=== PATIENT | female | born 1940 | race Caucasian/White ===

== ENCOUNTER 2018-04-29 10:16 | Inpatient (IN) | payer MEDICARE ==
[2018-04-29] MEDS ORDERED: MORPHINE SULFATE 2 MG/ML SYRINGE IVP STA (10:48)
[2018-04-29] MEDS ORDERED: ONDANSETRON 4 MG/2 ML VIAL IVP STA (10:48)
[2018-04-29] MEDS ORDERED: SODIUM CHLORIDE 0.9% 500 ML 500 ML IV STA (10:48)
--- NOTE | 2018-04-29 10:54 | ED ---
Abdominal Pain HPI - General Chief Complaint: Abdominal Pain Stated Complaint: Abd Pain Time Seen by Provider: 04/29/18 10:35 Source: patient, RN notes reviewed Mode of arrival: ambulatory Limitations: no limitations - History of Present Illness Initial Comments: 78-year-old female presents emergency Department chief complaint of lower abdominal pain. Patient states initially started on Monday and has worsened. Patient states that she was seen at formerly [facility] and was told that she most likely has diverticulitis and was started antibiotics. She states the pain has persisted and worsened. Patient states that she is also had diarrhea and not felt well. She has no dysuria no hematuria denies any known fever, chest pain, shortness breath, vomiting. Patient states that she has had a colonoscopy past in which she was told she had diverticulosis. Patient's had a prior cholecystectomy and appendectomy. Patient states that makes the pain feel better is worse than mild laying flat or walking. She states it does radiate across her lower abdomen. - Related Data Allergies Allergy/AdvReac Type Severity Reaction Status Date / Time hydromorphone [From Dilaudid] Allergy Hallucinati Verified 04/29/18 10:31 ons Review of Systems ROS Statement: Those systems with pertinent positive or pertinent negative responses have been documented in the HPI. ROS Other: All systems not noted in ROS Statement are negative. Past Medical History Past Medical History: Hyperlipidemia, Hypertension, Osteoarthritis (OA) History of Any Multi-Drug Resistant Organisms: None Reported Past Surgical History: Appendectomy, Cholecystectomy, Hysterectomy Additional Past Surgical History / Comment(s): Uterine suspension, D&C, knee surgery, heel spur removal Past Psychological History: No Psychological Hx Reported Smoking Status: Never smoker Past Alcohol Use History: None Reported Past Drug Use History: None Reported General Exam Limitations: no limitations General appearance: alert, in no apparent distress Head exam: Present: atraumatic, normocephalic, normal inspection Neck exam: Present: normal inspection, full ROM. Absent: tenderness, meningismus, lymphadenopathy Respiratory exam: Present: normal lung sounds bilaterally. Absent: respiratory distress, wheezes, rales, rhonchi, stridor Cardiovascular Exam: Present: regular rate, normal rhythm, normal heart sounds. Absent: systolic murmur, diastolic murmur, rubs, gallop, clicks GI/Abdominal exam: Present: soft, tenderness (Moderate left lower quadrant tenderness with mild right lower), normal bowel sounds. Absent: distended, guarding, rebound, rigid Back exam: Absent: CVA tenderness (R), CVA tenderness (L) Skin exam: Present: warm, dry, intact, normal color. Absent: rash Course Vital Signs 04/29/18 04/29/18 04/29/18 10:24 11:30 12:00 Temperature 97.7 F Pulse Rate 90 75 68 Respiratory 18 18 17 Rate Blood Pressure 144/66 134/70 128/71 O2 Sat by Pulse 97 96 95 Oximetry 04/29/18 12:30 Temperature Pulse Rate 69 Respiratory 18 Rate Blood Pressure 128/73 O2 Sat by Pulse 96 Oximetry Medical Decision Making - Lab Data Result diagrams: 04/29/18 11:25 04/29/18 11:25 Lab Results 04/29/18 04/29/18 04/29/18 Range/Units 11:25 11:25 11:25 WBC 8.7 (3.8-10.6) k/uL RBC 4.85 (3.80-5.40) m/uL Hgb 15.1 (11.4-16.0) gm/dL Hct 47.8 H (34.0-46.0) % MCV 98.6 (80.0-100.0) fL MCH 31.1 (25.0-35.0) pg MCHC 31.5 (31.0-37.0) g/dL RDW 12.4 (11.5-15.5) % Plt Count 214 (150-450) k/uL Neutrophils % 71 % Lymphocytes % 16 % Monocytes % 9 % Eosinophils % 2 % Basophils % 0 % Neutrophils # 6.2 (1.3-7.7) k/uL Lymphocytes # 1.4 (1.0-4.8) k/uL Monocytes # 0.8 (0-1.0) k/uL Eosinophils # 0.2 (0-0.7) k/uL Basophils # 0.0 (0-0.2) k/uL PT (9.0-12.0) sec INR (<1.2) APTT (22.0-30.0) sec Sodium 139 (137-145) mmol/L Potassium 5.1 (3.5-5.1) mmol/L Chloride 110 H (98-107) mmol/L Carbon Dioxide 20 L (22-30) mmol/L Anion Gap 9 mmol/L BUN 10 (7-17) mg/dL Creatinine 0.67 (0.52-1.04) mg/dL Est GFR (CKD-EPI)AfAm >90 (>60 ml/min/1.73 sqM) Est GFR (CKD-EPI)NonAf 84 (>60 ml/min/1.73 sqM) Glucose 96 (74-99) mg/dL Plasma Lactic Acid Oliver 1.4 (0.7-2.0) mmol/L Calcium 8.9 (8.4-10.2) mg/dL Total Bilirubin 1.0 (0.2-1.3) mg/dL AST 53 H (14-36) U/L ALT 27 (9-52) U/L Alkaline Phosphatase 64 (38-126) U/L Total Protein 6.9 (6.3-8.2) g/dL Albumin 3.7 (3.5-5.0) g/dL Amylase 46 (30-110) U/L Lipase 61 (23-300) U/L Urine Color Urine Appearance (Clear) Urine pH (5.0-8.0) Ur Specific [place] (1.001-1.035) Urine Protein (Negative) Urine Glucose (UA) (Negative) Urine Ketones (Negative) Urine Blood (Negative) Urine Nitrite (Negative) Urine Bilirubin (Negative) Urine Urobilinogen (<2.0) mg/dL Ur Leukocyte Esterase (Negative) 04/29/18 04/29/18 Range/Units 11:25 11:25 WBC (3.8-10.6) k/uL RBC (3.80-5.40) m/uL Hgb (11.4-16.0) gm/dL Hct (34.0-46.0) % MCV (80.0-100.0) fL MCH (25.0-35.0) pg MCHC (31.0-37.0) g/dL RDW (11.5-15.5) % Plt Count (150-450) k/uL Neutrophils % % Lymphocytes % % Monocytes % % Eosinophils % % Basophils % % Neutrophils # (1.3-7.7) k/uL Lymphocytes # (1.0-4.8) k/uL Monocytes # (0-1.0) k/uL Eosinophils # (0-0.7) k/uL Basophils # (0-0.2) k/uL PT 10.3 (9.0-12.0) sec INR 1.1 (<1.2) APTT 19.5 L (22.0-30.0) sec Sodium (137-145) mmol/L Potassium (3.5-5.1) mmol/L Chloride (98-107) mmol/L Carbon Dioxide (22-30) mmol/L Anion Gap mmol/L BUN (7-17) mg/dL Creatinine (0.52-1.04) mg/dL Est GFR (CKD-EPI)AfAm (>60 ml/min/1.73 sqM) Est GFR (CKD-EPI)NonAf (>60 ml/min/1.73 sqM) Glucose (74-99) mg/dL Plasma Lactic Acid Oliver (0.7-2.0) mmol/L Calcium (8.4-10.2) mg/dL Total Bilirubin (0.2-1.3) mg/dL AST (14-36) U/L ALT (9-52) U/L Alkaline Phosphatase (38-126) U/L Total Protein (6.3-8.2) g/dL Albumin (3.5-5.0) g/dL Amylase (30-110) U/L Lipase (23-300) U/L Urine Color Yellow Urine Appearance Clear (Clear) Urine pH 6.5 (5.0-8.0) Ur Specific [place] 1.013 (1.001-1.035) Urine Protein Trace H (Negative) Urine Glucose (UA) Negative (Negative) Urine Ketones Negative (Negative) Urine Blood Negative (Negative) Urine Nitrite Negative (Negative) Urine Bilirubin Negative (Negative) Urine Urobilinogen <2.0 (<2.0) mg/dL Ur Leukocyte Esterase Negative (Negative) Disposition Clinical Impression: Diverticulitis of intestine with perforation Disposition: ADMITTED IP TO THIS [facility] Condition: Fair Referrals: Rajeev Shelton MD [Primary Care Provider] - 1-2 days
[2018-04-29 11:44] LABS: Appearance,Urine Clear (Clear); Basophils % (A) 0 %; Bilirubin,Urine Negative (Negative); Blood,Urine Negative (Negative); Color,Urine Yellow; Eosinophils # (A) 0.2 k/uL (0-0.7); Eosinophils % (A) 2 %; Glucose,Urine (UA) Negative (Negative); HCT 47.8 % (34.0-46.0); HGB 15.1 gm/dL (11.4-16.0); Ketones,Urine Negative (Negative); Lymphocytes # (A) 1.4 k/uL (1.0-4.8); Lymphocytes % (A) 16 %; MCH 31.1 pg (25.0-35.0); MCHC 31.5 g/dL (31.0-37.0); MCV 98.6 fL (80.0-100.0); Mean Platelet Volume 8.1; Monocytes # (A) 0.8 k/uL (0-1.0); Monocytes % (A) 9 %; Neutrophils # (A) 6.2 k/uL (1.3-7.7); Neutrophils % (A) 71 %; PH, Urine 6.5 (5.0-8.0); Platelet Count 214 k/uL (150-450); Protein,Urine Trace (Negative); RBC 4.85 m/uL (3.80-5.40); RDW 12.4 % (11.5-15.5); Specific Gravity,Urine 1.013 (1.001-1.035); WBC 8.7 k/uL (3.8-10.6)
[2018-04-29 11:45] LABS: Leukocyte Esterase,Urine Negative (Negative); Nitrite,Urine Negative (Negative); Urobilinogen,Urine <2.0 mg/dL (<2.0)
[2018-04-29 11:55] LABS: Albumin 3.7 g/dL (3.5-5.0); Amylase 46 U/L (30-110); Anion Gap 9 mmol/L; Blood Urea Nitrogen 10 mg/dL (7-17); Calcium 8.9 mg/dL (8.4-10.2); Carbon Dioxide 20 mmol/L (22-30); Chloride 110 mmol/L (98-107); Glucose 96 mg/dL (74-99); Lipase 61 U/L (23-300); Sodium 139 mmol/L (137-145); Total Protein 6.9 g/dL (6.3-8.2)
[2018-04-29 11:57] LABS: ALT 27 U/L (9-52); AST 53 U/L (14-36); Alkaline Phosphatase 64 U/L (38-126); Potassium 5.1 mmol/L (3.5-5.1)
[2018-04-29 12:08] LABS: INR 1.1 (<1.2)
[2018-04-29 12:11] LABS: Partial Thromboplastin Time 19.5 sec (22.0-30.0); Prothrombin Time 10.3 sec (9.0-12.0)
--- NOTE | 2018-04-29 12:39 | CT ---
EXAMINATION TYPE: CT abdomen pelvis w con DATE OF EXAM: 04/29/2018 REFERENCE: Previous study dated 12/05/2011. HISTORY: abdominal pain HISTORY: generalized abdominal pain, diverticulitis. CT DLP: 968 mGy Automated exposure control for dose reduction was used. TECHNIQUE: Helical acquisition through the abdomen and pelvis was obtained following the oral ingesti on of without Oral Contrast and following intravenous administration of 100 mL of Isovue 300. The elpidio a was reformatted in axial, coronal and sagittal projections. FINDINGS: There is dependent atelectasis within the dependent portions of the lungs. There is scant, bilateral pleural effusions. The heart is enlarged. Within the abdomen, the gallbladder has been removed. The liver is mildly prominent measuring over 18 cm. The spleen is unremarkable. There is a small hiatal hernia. There is a stable 1.3 cm right adrenal mass. The left adrenal gland is normal. There are parapelvic cysts involving both kidneys. The kidneys are otherwise unremarkable. The pancreas is unremarkable. There is no significant retroperitoneal, iliac or inguinal adenopathy. The bladder is unremarkable. The uterus and ovaries are not visualized. There is moderate diverticular change within the sigmoid colon. There is pericolonic inflammatory charmaine nge. There is free retroperitoneal air some distance away from the bowel wall. These are loculated ai r collections. There is a small amount of pericolonic fluid. I could not exclude a small abscess toro cent to the mid sigmoid. The remainder the colon is unremarkable. There is a fecalith present within the cecum. The appendix is not visualized with certainty. Small bowel loops are normal in caliber. There is degenerative disc disease and fairly marked facet arthropathy within the lower lumbar spine. There is hypertrophic spondylosis in the lower dorsal spine. IMPRESSION: 1. ACUTE DIVERTICULITIS WITH EVIDENCE OF A SMALL BOWEL PERFORATION WITH SOME FREE PERICOLONIC AIR AND A SMALL AMOUNT OF PERICOLONIC FLUID. 2. SCANT, BILATERAL EFFUSIONS. 3. CARDIOMEGALY. 4. MILD HEPATOMEGALY. 5. SMALL HIATAL HERNIA. 6. 1.3 CM RIGHT ADRENAL MASS, STABLE IN APPEARANCE. 7. PARAPELVIC CYST. 8. DEGENERATIVE CHANGES WITHIN THE SPINE.
[2018-04-29] MEDS ORDERED: PIPERACILLIN-TAZOBACTAM 3.375 GM in DEXTROSE/WATER 1 50ML.BAG IVPB STA (12:40)
[2018-04-29] MEDS ORDERED: MORPHINE SULFATE 2 MG/ML SYRINGE IVP ONE (13:08)
[2018-04-29] MEDS ORDERED: metroNIDAZOLE-NS PMX 500 MG in SALINE 1 100ML.BAG IVPB STA (14:29)
[2018-04-29] MEDS: SODIUM CHLORIDE 0.9% 1,000 ML IV SCH (14:36)
--- NOTE | 2018-04-29 14:42 | P.GSHP ---
History of Present Illness H&P Date: 04/29/18 Chief Complaint: Lower abdominal pain The patient is a 78-year-old white female who states she's had lower abdominal pain for at least about 4 days now. She [facility] and was told she probably had diverticulitis and was placed on Cipro and Flagyl. She started this about a day and a half ago. Did have to travel [place] the [place]. Developed some diarrhea yesterday and last night and the pain got worse this morning. She presented to the emergency room. Had diminished appetite some nausea but no vomiting. No blood per rectum. No past history of similar problem. However did have 2 colonoscopies between 5 and 10 years ago that was unremarkable except for diverticulosis uncomplicated by Dr. Baird. Computed tomography scan of the abdomen and pelvis. Confirmed evidence of acute diverticulitis with some localized retroperitoneal area with possible localized walled off perforation. WBCs normal. Past history. Patient has a history of hypertension hyperlipidemia osteoarthritis. Previous surgery includes uterine suspension and hysterectomy open cholecystectomy and appendectomy knee surgery and tonsillectomy. No major complications Family history noncontributory. Social history patient denies smoking or alcohol. Under a lot of stress because her was recently put in a fci because of dementia. Her mom recently at age 100. ALLERGIES. Dilaudid makes her dizzy and disoriented. Systems review otherwise negative other than above. No chest pain. No cardiac or respiratory problems. No vaginal discharge or bleeding and no urinary symptoms. On examination patient is well-built well-nourished in no acute distress resting comfortably cheerful. Somewhat overweight with a BMI of 33.5. Temperature is normal. Vitals are normal. Mucous membranes are little on the dry side. Color is good. Head and neck are normal. No neck masses. No lymphadenopathy. Heart normal sinus rhythm. No murmurs. Lungs clinically clear. Abdomen somewhat obese mildly distended. Has a right subcostal and lower midline scars. No hernias. Has diffuse tenderness across lower abdomen seems more so on the left lower quadrant with some guarding but no rebound. No mass or organomegaly noted. Extremities normal. Full motion. No edema. [employer] intact no focal deficits. CT as above. WBC is normal. Hemoglobin 15.1 g percent. Urinalysis is unremarkable. Impression. Acute sigmoid diverticulitis with possibly a localized perforation with localized free air. History of hypertension. Hyperlipidemia. Obesity. Recommendation. Patient will be admitted placed on IV fluids antibiotics and treated medically and hopefully her symptoms would improve. Certainly would like to avoid surgical intervention which may necessitate a temporary colostomy at this time. Past Medical History Past Medical History: Hyperlipidemia, Hypertension, Osteoarthritis (OA) History of Any Multi-Drug Resistant Organisms: None Reported Past Surgical History: Appendectomy, Cholecystectomy, Hysterectomy Additional Past Surgical History / Comment(s): Uterine suspension, D&C, knee surgery, heel spur removal Past Psychological History: No Psychological Hx Reported Smoking Status: Never smoker Past Alcohol Use History: None Reported Past Drug Use History: None Reported Medications and Allergies Home Medications Medication Instructions Recorded Confirmed Type Calcium/Magnesium/Zinc 1 tab PO BID 04/29/18 04/29/18 History [Qyqohqm-Xiolnuwhw-Uitm Tablet] Cetirizine HCl [Zyrtec] 10 mg PO DAILY 04/29/18 04/29/18 History Cholecalciferol [Vitamin D3] 1,000 unit PO DAILY 04/29/18 04/29/18 History Cranberry Fruit Extract [Cranberry] 200 mg PO HS 04/29/18 04/29/18 History Cyanocobalamin (Vitamin B-12) 1,000 mcg PO 04/29/18 History [Vitamin B-12] Diltiazem Unknown Dose 1 tab PO DAILY 04/29/18 04/29/18 History Multivitamins, Thera [Multivitamin 1 tab PO DAILY 04/29/18 04/29/18 History (formulary)] Pyridoxine [Vitamin B-6] 50 mg PO DAILY 04/29/18 04/29/18 History Turmeric Root Extract [Turmeric] 500 mg PO DAILY 04/29/18 04/29/18 History Allergies Allergy/AdvReac Type Severity Reaction Status Date / Time hydromorphone [From Dilaudid] Allergy Hallucinati Verified 04/29/18 13:34 ons Surgical - Exam Vital Signs Temp Pulse Resp BP Pulse Ox 97.7 F 90 18 144/66 97 04/29/18 10:24 04/29/18 10:24 04/29/18 10:24 04/29/18 10:24 04/29/18 10:24 Results - Labs 04/29/18 11:25 04/29/18 11:25 Abnormal Lab Results - Last 24 Hours (Table) 04/29/18 04/29/18 04/29/18 Range/Units 11:25 11:25 11:25 Hct 47.8 H (34.0-46.0) % APTT 19.5 L (22.0-30.0) sec Chloride 110 H (98-107) mmol/L Carbon Dioxide 20 L (22-30) mmol/L AST 53 H (14-36) U/L Urine Protein (Negative) 04/29/18 Range/Units 11:25 Hct (34.0-46.0) % APTT (22.0-30.0) sec Chloride (98-107) mmol/L Carbon Dioxide (22-30) mmol/L AST (14-36) U/L Urine Protein Trace H (Negative) Diabetes panel 04/29/18 Range/Units 11:25 Sodium 139 (137-145) mmol/L Potassium 5.1 (3.5-5.1) mmol/L Chloride 110 H (98-107) mmol/L Carbon Dioxide 20 L (22-30) mmol/L BUN 10 (7-17) mg/dL Creatinine 0.67 (0.52-1.04) mg/dL Glucose 96 (74-99) mg/dL Calcium 8.9 (8.4-10.2) mg/dL AST 53 H (14-36) U/L ALT 27 (9-52) U/L Alkaline Phosphatase 64 (38-126) U/L Total Protein 6.9 (6.3-8.2) g/dL Albumin 3.7 (3.5-5.0) g/dL Calcium panel 04/29/18 Range/Units 11:25 Calcium 8.9 (8.4-10.2) mg/dL Albumin 3.7 (3.5-5.0) g/dL Pituitary panel 04/29/18 Range/Units 11:25 Sodium 139 (137-145) mmol/L Potassium 5.1 (3.5-5.1) mmol/L Chloride 110 H (98-107) mmol/L Carbon Dioxide 20 L (22-30) mmol/L BUN 10 (7-17) mg/dL Creatinine 0.67 (0.52-1.04) mg/dL Glucose 96 (74-99) mg/dL Calcium 8.9 (8.4-10.2) mg/dL Adrenal panel 04/29/18 Range/Units 11:25 Sodium 139 (137-145) mmol/L Potassium 5.1 (3.5-5.1) mmol/L Chloride 110 H (98-107) mmol/L Carbon Dioxide 20 L (22-30) mmol/L BUN 10 (7-17) mg/dL Creatinine 0.67 (0.52-1.04) mg/dL Glucose 96 (74-99) mg/dL Calcium 8.9 (8.4-10.2) mg/dL Total Bilirubin 1.0 (0.2-1.3) mg/dL AST 53 H (14-36) U/L ALT 27 (9-52) U/L Alkaline Phosphatase 64 (38-126) U/L Total Protein 6.9 (6.3-8.2) g/dL Albumin 3.7 (3.5-5.0) g/dL
[2018-04-29 16:37] VITALS: BMI 32.6
--- NOTE | 2018-04-29 16:40 | P.CONS ---
History of Present Illness - Reason for Consult Diverticulitis - History of Present Illness 78-year-old pleasant female came in with complaints of right lower quadrant abdominal pain found to diverticulitis with microperforation because of which patient was admitted to surgical services. Patient was started on IV fluids at 75 mL per hour is on Zosyn and metronidazole. Patient had does these symptoms of right lower quadrant abdominal pain along with diarrhea on , was seen in the urgent care was given and ciprofloxacin and metronidazole appropriately although her symptoms gardened briefly but better started worsening again came to ER. Patient denied any fever chills denied any nausea vomiting. Review of Systems REVIEW OF SYSTEMS: CONSTITUTIONAL: No fever, no malaise, no fatigue. HEENT: No recent visual problems or hearing problems. Denied any sore throat. CARDIOVASCULAR: No chest pain, orthopnea, PND, no palpitations, no syncope. PULMONARY: No shortness of breath, no cough, no hemoptysis. GASTROINTESTINAL: As mentioned in HPI NEUROLOGICAL: No headaches, no weakness, no numbness. HEMATOLOGICAL: Denies any bleeding or petechiae. GENITOURINARY: Denies any burning micturition, frequency, or urgency. MUSCULOSKELETAL/RHEUMATOLOGICAL: Denies any joint pain, swelling, or any muscle pain. ENDOCRINE: Denies any polyuria or polydipsia. The rest of the 14-point review of systems is negative. Past Medical History Past Medical History: Hyperlipidemia, Hypertension, Osteoarthritis (OA) History of Any Multi-Drug Resistant Organisms: None Reported Past Surgical History: Appendectomy, Cholecystectomy, Hysterectomy Additional Past Surgical History / Comment(s): Uterine suspension, D&C, knee surgery, heel spur removal Past Psychological History: No Psychological Hx Reported Smoking Status: Never smoker Past Alcohol Use History: None Reported Past Drug Use History: None Reported Medications and Allergies Home Medications Medication Instructions Recorded Confirmed Type Calcium/Magnesium/Zinc 1 tab PO BID 04/29/18 04/29/18 History [Dgsgabv-Beulyvgcm-Zxpv Tablet] Cetirizine HCl [Zyrtec] 10 mg PO DAILY 04/29/18 04/29/18 History Cholecalciferol [Vitamin D3] 1,000 unit PO DAILY 04/29/18 04/29/18 History Cranberry Fruit Extract [Cranberry] 200 mg PO HS 04/29/18 04/29/18 History Cyanocobalamin (Vitamin B-12) 1,000 mcg PO 04/29/18 History [Vitamin B-12] Diltiazem Unknown Dose 1 tab PO DAILY 04/29/18 04/29/18 History Multivitamins, Thera [Multivitamin 1 tab PO DAILY 04/29/18 04/29/18 History (formulary)] Pyridoxine [Vitamin B-6] 50 mg PO DAILY 04/29/18 04/29/18 History Turmeric Root Extract [Turmeric] 500 mg PO DAILY 04/29/18 04/29/18 History Allergies Allergy/AdvReac Type Severity Reaction Status Date / Time hydromorphone [From Dilaudid] Allergy Hallucinati Verified 04/29/18 13:34 ons Physical Exam Vitals: Vital Signs Temp Pulse Pulse Resp BP BP Pulse Ox 04/29/18 15:45 94.5 F L 77 18 142/81 93 L 04/29/18 14:30 98.8 F 67 18 142/75 94 L 04/29/18 14:00 78 124/114 04/29/18 13:30 67 18 142/75 92 L 04/29/18 13:00 66 18 143/78 97 04/29/18 12:30 69 18 128/73 96 04/29/18 12:00 68 17 128/71 95 04/29/18 11:30 75 18 134/70 96 04/29/18 10:24 97.7 F 90 18 144/66 97 Intake and Output 04/29/18 04/29/18 04/29/18 06:59 14:59 22:59 Other: Weight 88.451 kg PHYSICAL EXAMINATION: GENERAL: The patient is alert and oriented x3, not in any acute distress. Well developed, well nourished. HEENT: Pupils are round and equally reacting to light. EOMI. No scleral icterus. No conjunctival pallor. Normocephalic, atraumatic. No pharyngeal erythema. No thyromegaly. CARDIOVASCULAR: S1 and S2 present. No murmurs, rubs, or gallops. PULMONARY: Chest is clear to auscultation, no wheezing or crackles. ABDOMEN: Soft, minimal tenderness in the right lower quadrant MUSCULOSKELETAL: No joint swelling or deformity. EXTREMITIES: No cyanosis, clubbing, or pedal edema. NEUROLOGICAL: Gross neurological examination did not reveal any focal deficits. SKIN: No rashes. Results CBC & Chem 7: 04/29/18 11:25 04/29/18 11:25 Labs: Abnormal Lab Results - Last 24 Hours (Table) 04/29/18 04/29/18 04/29/18 Range/Units 11:25 11:25 11:25 Hct 47.8 H (34.0-46.0) % APTT 19.5 L (22.0-30.0) sec Chloride 110 H (98-107) mmol/L Carbon Dioxide 20 L (22-30) mmol/L AST 53 H (14-36) U/L Urine Protein (Negative) 04/29/18 Range/Units 11:25 Hct (34.0-46.0) % APTT (22.0-30.0) sec Chloride (98-107) mmol/L Carbon Dioxide (22-30) mmol/L AST (14-36) U/L Urine Protein Trace H (Negative) Assessment and Plan Plan: -Diabetic colitis with microperforation: Continue with IV fluids continue on Zosyn and metronidazole -Incidental finding of a small lesion on the adrenal gland which is stable compared to previous scans and the will probably need another follow-up scan as an outpatient. -Hypertension: Patient is on diltiazem dose of which is unknown once in a low- dose patient will be started on this medication -Hyperlipidemia
[2018-04-29] MEDS: PANTOPRAZOLE 40 MG/10 ML VIAL IVP SCH (17:33)
[2018-04-29] MEDS: MORPHINE SULFATE 4 MG/ML SYRINGE IV PRN (19:25)
[2018-04-29] MEDS: HEPARIN SODIUM,PORCINE 5,000 UNIT/ML 1 ML VIAL SQ SCH (21:08)
[2018-04-29] MEDS: metroNIDAZOLE-NS PMX 500 MG in SALINE 1 100ML.BAG IVPB SCH (22:54)
[2018-04-30] MEDS: PIPERACILLIN-TAZOBACTAM 3.375 GM in DEXTROSE/WATER 1 50ML.BAG IVPB SCH ×3 (00:01→16:31)
[2018-04-30] MEDS: SODIUM CHLORIDE 0.9% 1,000 ML IV SCH ×3 (04:17→18:22)
[2018-04-30] MEDS: MORPHINE SULFATE 4 MG/ML SYRINGE IV PRN ×2 (07:38→12:50)
[2018-04-30] MEDS: metroNIDAZOLE-NS PMX 500 MG in SALINE 1 100ML.BAG IVPB SCH ×2 (07:42→16:31)
[2018-04-30] MEDS: HEPARIN SODIUM,PORCINE 5,000 UNIT/ML 1 ML VIAL SQ SCH ×2 (07:44→21:03)
[2018-04-30] MEDS: PANTOPRAZOLE 40 MG/10 ML VIAL IVP SCH (07:44)
--- NOTE | 2018-04-30 08:47 | P.PN ---
Subjective Progress Note Date: 04/30/18 Principal diagnosis: Acute diverticulitis with localized perforation. The patient remains fairly stable. States that she states very minimal in her lower abdominal discomfort. Did have a liquid bowel movement with slight relief. However no worsening in his symptoms. On examination the patient is awake alert in no distress resting comfortably. Temperature is normal. Vitals are normal. Hydration is better. Abdomen is rather obese. Still a fair amount of tenderness across lower abdomen more so in the left lower quadrant with some mild guarding but no rebound or rigidity. No mass or organomegaly noted. Impression acute diverticulitis with localized perforation with a small amount of pericolonic free air. Slight improvement. Her graft recommendation suspect he will well progressively improving as she gets more antibiotics on board. Continue close monitoring. Hopefully we can get her over this acute episode without surgical intervention and a colostomy. Objective - Vital Signs Vital signs: Vital Signs Temp 98.8 F 04/30/18 05:20 Pulse 60 04/30/18 05:20 Resp 16 04/30/18 05:20 BP 138/61 04/30/18 05:20 Pulse Ox 96 04/30/18 05:20 Intake & Output 04/29/18 04/30/18 04/30/18 18:59 06:59 18:59 Intake Total 300 Balance 300 Weight 89 kg 89 kg Intake: IV 300 Sodium Chloride 0.9% 1, 300 000 ml @ 75 mls/hr IV . [id number] [facility] Rx#:[id number] Oral 0 Other: Voiding Method Toilet Toilet # Voids 2 - Labs CBC & Chem 7: 04/29/18 11:25 04/29/18 11:25 Labs: Abnormal Lab Results - Last 24 Hours (Table) 04/29/18 04/29/18 04/29/18 Range/Units 11:25 11:25 11:25 Hct 47.8 H (34.0-46.0) % APTT 19.5 L (22.0-30.0) sec Chloride 110 H (98-107) mmol/L Carbon Dioxide 20 L (22-30) mmol/L AST 53 H (14-36) U/L Urine Protein (Negative) 04/29/18 Range/Units 11:25 Hct (34.0-46.0) % APTT (22.0-30.0) sec Chloride (98-107) mmol/L Carbon Dioxide (22-30) mmol/L AST (14-36) U/L Urine Protein Trace H (Negative)
--- NOTE | 2018-04-30 13:05 | P.PN ---
Subjective Patient still has some pain in the right lower quadrant. No significant diarrhea normal stool. Objective - Vital Signs Vital signs: Vital Signs Temp 98.2 F 04/30/18 12:26 Pulse 79 04/30/18 12:26 Resp 18 04/30/18 12:26 BP 137/71 04/30/18 12:26 Pulse Ox 95 04/30/18 12:26 Intake & Output 04/29/18 04/30/18 04/30/18 18:59 06:59 18:59 Intake Total 300 Balance 300 Weight 89 kg 89 kg Intake: IV 300 Sodium Chloride 0.9% 1, 300 000 ml @ 75 mls/hr IV . [id number] [facility] Rx#:[id number] Oral 0 Other: Voiding Method Toilet Toilet Toilet # Voids 2 - Exam PHYSICAL EXAMINATION: GENERAL: The patient is alert and oriented x3, not in any acute distress. Well developed, well nourished. HEENT: Pupils are round and equally reacting to light. EOMI. No scleral icterus. No conjunctival pallor. Normocephalic, atraumatic. No pharyngeal erythema. No thyromegaly. CARDIOVASCULAR: S1 and S2 present. No murmurs, rubs, or gallops. PULMONARY: Chest is clear to auscultation, no wheezing or crackles. ABDOMEN: Soft, minimal tenderness in the right lower quadrant MUSCULOSKELETAL: No joint swelling or deformity. EXTREMITIES: No cyanosis, clubbing, or pedal edema. NEUROLOGICAL: Gross neurological examination did not reveal any focal deficits. SKIN: No rashes. - Labs CBC & Chem 7: 04/29/18 11:25 04/29/18 11:25 Assessment and Plan Plan: -Diabetic colitis with microperforation: Continue with IV fluids continue on Zosyn and metronidazole -Incidental finding of a small lesion on the adrenal gland which is stable compared to previous scans and the will probably need another follow-up scan as an outpatient. -Hypertension: blood pressure and heart rate is okay without the diltiazem will continue to hold this medication and monitor. -Hyperlipidemia
[2018-04-30] MEDS: ONDANSETRON 4 MG/2 ML VIAL IVP PRN (13:45)
[2018-05-01] MEDS: metroNIDAZOLE-NS PMX 500 MG in SALINE 1 100ML.BAG IVPB SCH ×4 (00:15→22:41)
[2018-05-01] MEDS: PIPERACILLIN-TAZOBACTAM 3.375 GM in DEXTROSE/WATER 1 50ML.BAG IVPB SCH ×3 (01:10→17:01)
[2018-05-01] MEDS: SODIUM CHLORIDE 0.9% 1,000 ML IV SCH ×2 (05:37→19:12)
[2018-05-01] MEDS: HEPARIN SODIUM,PORCINE 5,000 UNIT/ML 1 ML VIAL SQ SCH ×2 (08:21→20:37)
[2018-05-01] MEDS: PANTOPRAZOLE 40 MG/10 ML VIAL IVP SCH (08:22)
[2018-05-01 08:38] LABS: Anion Gap 8 mmol/L; Blood Urea Nitrogen 8 mg/dL (7-17); Calcium 8.6 mg/dL (8.4-10.2); Carbon Dioxide 21 mmol/L (22-30); Chloride 110 mmol/L (98-107); Glucose 93 mg/dL (74-99); Sodium 139 mmol/L (137-145)
[2018-05-01 08:40] LABS: HCT 44.8 % (34.0-46.0); HGB 14.2 gm/dL (11.4-16.0); MCH 31.2 pg (25.0-35.0); MCHC 31.8 g/dL (31.0-37.0); MCV 98.2 fL (80.0-100.0); Mean Platelet Volume 7.4; Platelet Count 265 k/uL (150-450); RBC 4.57 m/uL (3.80-5.40); RDW 12.2 % (11.5-15.5); WBC 7.3 k/uL (3.8-10.6)
--- NOTE | 2018-05-01 10:39 | P.PN ---
Subjective Progress Note Date: 05/01/18 Patient seen and examined at bedside. States her abdominal pain is improving. Did have 1 liquid bowel movement. Denies any nausea or vomiting. Tolerating clear liquid diet. Objective - Vital Signs Vital signs: Vital Signs Temp 98.0 F 05/01/18 04:45 Pulse 62 05/01/18 04:45 Resp 16 05/01/18 04:45 BP 118/83 05/01/18 04:45 Pulse Ox 92 L 05/01/18 04:45 Intake & Output 04/30/18 05/01/18 05/01/18 18:59 06:59 18:59 Intake Total 675 1410 Balance 675 1410 Intake: IV 525 900 Sodium Chloride 0.9% 1, 525 900 000 ml @ 75 mls/hr IV . [id number] [facility] Rx#:[id number] Intake, IV Titration 150 150 Amount Piperacillin-Tazobactam 3 50 50 .375 gm In Dextrose/Water 1 50ml.bag @ 12.5 mls/hr IVPB Q8HR [facility] Rx#: [id number] metroNIDAZOLE-NS PMX 500 100 100 mg In Saline 1 100ml.bag @ 100 mls/hr IVPB Q8HR [facility] Rx#:[id number] Oral 360 Other: Voiding Method Toilet Toilet Toilet # Voids 2 - Constitutional General appearance: Present: cooperative, no acute distress - Respiratory Details: No difficulty with respiration - Gastrointestinal Gastrointestinal Comment(s): Soft, nontender, nondistended, no rebound, no guarding - Psychiatric Psychiatric: Present: A&O x's 3 - Labs CBC & Chem 7: 05/01/18 08:06 05/01/18 08:06 Labs: Abnormal Lab Results - Last 24 Hours (Table) 05/01/18 Range/Units 08:06 Chloride 110 H (98-107) mmol/L Carbon Dioxide 21 L (22-30) mmol/L Microbiology - Last 24 Hours (Table) 04/29/18 11:25 Blood Culture - Preliminary Blood No Growth after 24 hours Assessment and Plan (1) Diverticulitis of intestine with perforation Narrative/Plan: 78-year-old female with acute diverticulitis with microperforation - Abdominal pain is improving, patient did have bowel function - Advance to full liquid diet - Continue antibiotics and IV fluid resuscitation - Progressing slowly Current Visit: Yes Status: Acute Code(s): K57.80 - DVTRCLI OF INTEST, PART UNSP, W PERF AND ABSCESS W/O BLEED SNOMED Code(s): 665096253
--- NOTE | 2018-05-01 13:34 | P.PN ---
Subjective Patient still has some pain in the right lower quadrant and patient is being treated for diverticulitis with the microperforation. No significant diarrhea normal stool. 05/01/2018 Patient still has mild tenderness because of which the surgery is recommending IV antibiotics and continued monitoring one more night. Patient does have improvement but slow Objective - Vital Signs Vital signs: Vital Signs Temp 97 F L 05/01/18 12:18 Pulse 74 05/01/18 12:18 Resp 18 05/01/18 12:18 BP 140/65 05/01/18 12:18 Pulse Ox 94 L 05/01/18 12:18 Intake & Output 04/30/18 05/01/18 05/01/18 18:59 06:59 18:59 Intake Total 675 1410 Balance 675 1410 Intake: IV 525 900 Sodium Chloride 0.9% 1, 525 900 000 ml @ 75 mls/hr IV . [id number] [facility] Rx#:[id number] Intake, IV Titration 150 150 Amount Piperacillin-Tazobactam 3 50 50 .375 gm In Dextrose/Water 1 50ml.bag @ 12.5 mls/hr IVPB Q8HR [facility] Rx#: [id number] metroNIDAZOLE-NS PMX 500 100 100 mg In Saline 1 100ml.bag @ 100 mls/hr IVPB Q8HR [facility] Rx#:[id number] Oral 360 Other: Voiding Method Toilet Toilet Toilet # Voids 2 - Exam PHYSICAL EXAMINATION: GENERAL: The patient is alert and oriented x3, not in any acute distress. Well developed, well nourished. HEENT: Pupils are round and equally reacting to light. EOMI. No scleral icterus. No conjunctival pallor. Normocephalic, atraumatic. No pharyngeal erythema. No thyromegaly. CARDIOVASCULAR: S1 and S2 present. No murmurs, rubs, or gallops. PULMONARY: Chest is clear to auscultation, no wheezing or crackles. ABDOMEN: Soft, nontender MUSCULOSKELETAL: No joint swelling or deformity. EXTREMITIES: No cyanosis, clubbing, or pedal edema. NEUROLOGICAL: Gross neurological examination did not reveal any focal deficits. SKIN: No rashes. - Labs CBC & Chem 7: 05/01/18 08:06 05/01/18 08:06 Labs: Abnormal Lab Results - Last 24 Hours (Table) 05/01/18 Range/Units 08:06 Chloride 110 H (98-107) mmol/L Carbon Dioxide 21 L (22-30) mmol/L Microbiology - Last 24 Hours (Table) 04/29/18 11:25 Blood Culture - Preliminary Blood No Growth after 24 hours Assessment and Plan Plan: -Diabetic colitis with microperforation: Continue with IV fluids continue on Zosyn and metronidazole -Incidental finding of a small lesion on the adrenal gland which is stable compared to previous scans and the will probably need another follow-up scan as an outpatient. -Hypertension: blood pressure and heart rate is okay without the diltiazem will continue to hold this medication and monitor. -Hyperlipidemia
[2018-05-01] MEDS: MORPHINE SULFATE 4 MG/ML SYRINGE IV PRN (19:49)
[2018-05-02] MEDS: SODIUM CHLORIDE 0.9% 1,000 ML IV SCH ×2 (00:20→21:03)
[2018-05-02] MEDS: PIPERACILLIN-TAZOBACTAM 3.375 GM in DEXTROSE/WATER 1 50ML.BAG IVPB SCH ×3 (00:21→16:35)
[2018-05-02] MEDS: metroNIDAZOLE-NS PMX 500 MG in SALINE 1 100ML.BAG IVPB SCH ×3 (08:45→23:12)
[2018-05-02] MEDS: HEPARIN SODIUM,PORCINE 5,000 UNIT/ML 1 ML VIAL SQ SCH ×2 (08:46→21:01)
[2018-05-02] MEDS: PANTOPRAZOLE 40 MG/10 ML VIAL IVP SCH (08:48)
--- NOTE | 2018-05-02 09:09 | P.PN ---
Subjective Progress Note Date: 05/02/18 Patient seen and examined at bedside. States she is feeling better and abdominal pain is improved. States she did not sleep well overnight. Had some nausea with full liquid diet but no emesis. Nausea did improve. Objective - Vital Signs Vital signs: Vital Signs Temp 98.1 F 05/02/18 05:45 Pulse 81 05/02/18 05:45 Resp 16 05/02/18 05:45 BP 131/59 05/02/18 05:45 Pulse Ox 92 L 05/02/18 05:45 Intake & Output 05/01/18 05/02/18 05/02/18 18:59 06:59 18:59 Intake Total 675 1050 Balance 675 1050 Intake: IV 650 Sodium Chloride 0.9% 1, 650 000 ml @ 75 mls/hr IV . [id number] [facility] Rx#:[id number] Intake, IV Titration 675 150 Amount Piperacillin-Tazobactam 3 50 50 .375 gm In Dextrose/Water 1 50ml.bag @ 12.5 mls/hr IVPB Q8HR [facility] Rx#: [id number] Sodium Chloride 0.9% 1, 525 000 ml @ 75 mls/hr IV . [id number] [facility] Rx#:[id number] metroNIDAZOLE-NS PMX 500 100 100 mg In Saline 1 100ml.bag @ 100 mls/hr IVPB Q8HR [facility] Rx#:[id number] Oral 250 Other: Voiding Method Toilet Toilet Toilet # Voids 1 # Bowel Movements 1 - Constitutional General appearance: Present: cooperative, no acute distress - Respiratory Details: No difficulty with respiration - Gastrointestinal Gastrointestinal Comment(s): Soft, nontender, nondistended, no rebound, no guarding - Psychiatric Psychiatric: Present: A&O x's 3 - Labs CBC & Chem 7: 05/01/18 08:06 05/01/18 08:06 Labs: Microbiology - Last 24 Hours (Table) 04/29/18 11:25 Blood Culture - Preliminary Blood No Growth after 48 hours Assessment and Plan (1) Diverticulitis of intestine with perforation Narrative/Plan: 78-year-old female with acute diverticulitis with microperforation - Abdominal pain is improving, patient did have bowel function - Advance to soft diet - Continue antibiotics and IV fluid resuscitation - Progressing slowly Current Visit: Yes Status: Acute Code(s): K57.80 - DVTRCLI OF INTEST, PART UNSP, W PERF AND ABSCESS W/O BLEED SNOMED Code(s): 358920043
[2018-05-02] MEDS: MORPHINE SULFATE 4 MG/ML SYRINGE IV PRN (11:21)
[2018-05-02] MEDS: ONDANSETRON 4 MG/2 ML VIAL IVP PRN (21:00)
[2018-05-03] MEDS: PIPERACILLIN-TAZOBACTAM 3.375 GM in DEXTROSE/WATER 1 50ML.BAG IVPB SCH ×3 (00:54→15:19)
[2018-05-03 08:26] LABS: Basophils % (A) 0 %; Eosinophils # (A) 0.1 k/uL (0-0.7); Eosinophils % (A) 2 %; HGB 14.2 gm/dL (11.4-16.0); Lymphocytes # (A) 1.5 k/uL (1.0-4.8); Lymphocytes % (A) 24 %; MCH 31.2 pg (25.0-35.0); MCHC 32.1 g/dL (31.0-37.0); MCV 97.1 fL (80.0-100.0); Mean Platelet Volume 10.1; Monocytes # (A) 0.5 k/uL (0-1.0); Monocytes % (A) 8 %; Neutrophils # (A) 3.8 k/uL (1.3-7.7); Neutrophils % (A) 63 %; RBC 4.54 m/uL (3.80-5.40); RDW 12.3 % (11.5-15.5)
[2018-05-03 08:30] LABS: Platelet Count 114 k/uL (150-450)
[2018-05-03] MEDS: HEPARIN SODIUM,PORCINE 5,000 UNIT/ML 1 ML VIAL SQ SCH (09:29)
[2018-05-03] MEDS: PANTOPRAZOLE 40 MG/10 ML VIAL IVP SCH (09:29)
[2018-05-03] MEDS: metroNIDAZOLE-NS PMX 500 MG in SALINE 1 100ML.BAG IVPB SCH (09:29)
[2018-05-03 10:27] VITALS: RESP 20
[2018-05-03 12:04] VITALS: BP 156/82; PULSE 61; TEMP 98
--- NOTE | 2018-05-03 12:55 | P.PN ---
Subjective Progress Note Date: 05/02/18 Progress note being dictated for Dr. Gilmore. Patient still has some pain in the right lower quadrant and patient is being treated for diverticulitis with the microperforation. No significant diarrhea normal stool. 05/01/2018 Patient still has mild tenderness because of which the surgery is recommending IV antibiotics and continued monitoring one more night. Patient does have improvement but slow 05/02/2018 maintained on gentle IV fluid hydration, antibiotics. abdominal pain improving, nausea earlier this morning, improved. Diet advanced to soft as per surgery. Afebrile. Objective - Vital Signs Vital signs: Vital Signs Temp 98.1 F 05/02/18 05:45 Pulse 81 05/02/18 05:45 Resp 16 05/02/18 05:45 BP 131/59 05/02/18 05:45 Pulse Ox 92 L 05/02/18 05:45 Intake & Output 05/01/18 05/02/18 05/02/18 18:59 06:59 18:59 Intake Total 675 1050 Balance 675 1050 Intake: IV 650 Sodium Chloride 0.9% 1, 650 000 ml @ 75 mls/hr IV . [id number] [facility] Rx#:[id number] Intake, IV Titration 675 150 Amount Piperacillin-Tazobactam 3 50 50 .375 gm In Dextrose/Water 1 50ml.bag @ 12.5 mls/hr IVPB Q8HR [facility] Rx#: [id number] Sodium Chloride 0.9% 1, 525 000 ml @ 75 mls/hr IV . [id number] [facility] Rx#:[id number] metroNIDAZOLE-NS PMX 500 100 100 mg In Saline 1 100ml.bag @ 100 mls/hr IVPB Q8HR [facility] Rx#:[id number] Oral 250 Other: Voiding Method Toilet Toilet Toilet # Voids 1 # Bowel Movements 1 - Exam GENERAL: Sitting up in bed, alert and oriented x3, not in any acute distress. HEENT: Pupils are round and equally reacting to light. EOMI. No scleral icterus. No conjunctival pallor. Normocephalic, atraumatic. CARDIOVASCULAR: S1 and S2 present. No murmurs, rubs, or gallops. PULMONARY: Chest is clear to auscultation, no wheezing or crackles. ABDOMEN: Soft, nontender, nondistended, no guarding, no rebound. MUSCULOSKELETAL: No joint swelling or deformity. EXTREMITIES: No cyanosis, clubbing, or pedal edema. NEUROLOGICAL: Gross neurological examination did not reveal any focal deficits. SKIN: No rashes. - Labs CBC & Chem 7: 05/03/18 07:02 05/01/18 08:06 Labs: Microbiology - Last 24 Hours (Table) 04/29/18 11:25 Blood Culture - Preliminary Blood No Growth after 48 hours Assessment and Plan Assessment: -Diabetic colitis with microperforation: Continue with IV fluids continue on Zosyn and metronidazole -Incidental finding of a small lesion on the adrenal gland which is stable compared to previous scans and the will probably need another follow-up scan as an outpatient. -Hypertension -Hyperlipidemia Plan: Continue on current medication regime ,monitoring and symptomatic treatment. Maintain IV fluid hydration, Zosyn, Flagyl.Diet advancement as per surgery. Increase ambulation as tolerated. Aggressive pulmonary toileting with incentive spirometer reinforced. The impression and plan of care has been dictated as directed. : I performed a history and examination of this patient, discussed the same with the dictator. I agree with the dictator's note ,documented as a scribe. Any additional findings or plans will be noted.
[2018-05-03] MEDS: SODIUM CHLORIDE 0.9% 1,000 ML IV SCH (15:45)
[2018-05-03] MEDS ORDERED: metroNIDAZOLE 500 MG TAB PO SCH (16:00)
--- NOTE | 2018-05-03 22:06 | P.PN ---
Subjective Progress Note Date: 05/03/18 Principal diagnosis: Acute diverticulitis Patient was admitted with right lower quadrant and patient is being treated for diverticulitis with the microperforation. No significant diarrhea normal stool. 05/01/2018 Patient still has mild tenderness because of which the surgery is recommending IV antibiotics and continued monitoring one more night. Patient does have improvement but slow 05/02/2018 maintained on gentle IV fluid hydration, antibiotics. abdominal pain improving, nausea earlier this morning, improved. Diet advanced to soft as per surgery. Afebrile. 05/03/2018 Abdominal pain is much improved now. Tolerating oral diet. Patient is being discharged home. Continue with antibiotic course. Discharge medication reconciliation was done. Objective - Vital Signs Vital signs: Vital Signs Temp 98.0 F 05/03/18 12:03 Pulse 61 05/03/18 12:03 Resp 20 05/03/18 12:03 BP 156/82 05/03/18 12:03 Pulse Ox 95 05/03/18 05:35 Intake & Output 05/02/18 05/03/18 05/03/18 18:59 06:59 18:59 Intake Total 600 Balance 600 Weight 89 kg Intake: IV 600 Sodium Chloride 0.9% 1, 600 000 ml @ 50 mls/hr IV . Q20H [facility] Rx#:[id number] Other: Voiding Method Toilet Toilet Toilet # Voids 5 3 2 # Bowel Movements 1 - Exam GENERAL: Sitting up in bed, alert and oriented x3, not in any acute distress. HEENT: Pupils are round and equally reacting to light. EOMI. No scleral icterus. No conjunctival pallor. Normocephalic, atraumatic. CARDIOVASCULAR: S1 and S2 present. No murmurs, rubs, or gallops. PULMONARY: Chest is clear to auscultation, no wheezing or crackles. ABDOMEN: Soft, nontender, nondistended, no guarding, no rebound. MUSCULOSKELETAL: No joint swelling or deformity. EXTREMITIES: No cyanosis, clubbing, or pedal edema. NEUROLOGICAL: Gross neurological examination did not reveal any focal deficits. SKIN: No rashes. - Labs CBC & Chem 7: 05/03/18 07:02 05/01/18 08:06 Labs: Abnormal Lab Results - Last 24 Hours (Table) 10/25/18 Range/Units 07:02 Plt Count 114 L D (150-450) k/uL Microbiology - Last 24 Hours (Table) 04/29/18 11:25 Blood Culture - Preliminary Blood No Growth after 96 hours Assessment and Plan Assessment: -Diabetic colitis with microperforation: Continued with IV fluids continue on Zosyn and metronidazole -Incidental finding of a small lesion on the adrenal gland which is stable compared to previous scans and the will probably need another follow-up scan as an outpatient. -Hypertension -Hyperlipidemia Plan: Continue on current medication regime ,monitoring and symptomatic treatment. Maintain IV fluid hydration, Zosyn, Flagyl.Diet advancement as per surgery. Increase ambulation as tolerated. Aggressive pulmonary toileting with incentive spirometer reinforced. Patient is stable to be discharged home.
[2018-05-04] MEDS ORDERED: PANTOPRAZOLE 40 MG TABLET PO SCH (07:30)
== END 2018-05-03 16:00 | disposition home or self-care (01) | DRG 392 ==
LOC: EC 10:16 → 3NMEDONC 14:04
PROVIDERS: ADMIT Surgery; ATTEND Surgery
DX: K57.20 Diverticulitis of large intestine with perforation and abscess without bleeding (principal); E66.9 Obesity, unspecified; E78.5 Hyperlipidemia, unspecified; I10 Essential (primary) hypertension; M19.90 Unspecified osteoarthritis, unspecified site; E27.9 Disorder of adrenal gland, unspecified; Z68.33 Body mass index [BMI] 33.0-33.9, adult; Z90.49 Acquired absence of other specified parts of digestive tract; Z90.710 Acquired absence of both cervix and uterus; Z88.5 Allergy status to narcotic agent; Z79.899 Other long term (current) drug therapy
CPT/HCPCS: 36415; 74177; 80048; 80053; 81003; 82150; 83605; 83690; 85025; 85027; 85610; 85730; 87040; 96361; 96365; 96366; 96375; 96376; 99285

== ENCOUNTER → 2018-08-23 | Outpatient (CLI) | payer MEDICARE ==
--- NOTE | 2018-08-23 14:32 | SFUN ---
SLEEP CENTER FOLLOW UP NOTE DATE OF SERVICE: 08/23/2018 A 78-year-old lady who has been followed in the Sleep Center for treatment of obstructive sleep apnea-hypopnea syndrome. Patient successfully continued to use his CPAP equipment every night for the whole night without significant problems related to mask fitting, pressure or humidification. [place] Sleepiness Scale today is 2, which is absolutely normal. I checked her CPAP unit, CPAP pressure 7 cm of water, patient using it 100% of the night more than 4 hours. Average usage 9.8 hours. Leak is only 1 L/minute which is very minimal. Apnea-hypopnea index only 0.7, which is absolutely perfect. MEDICATIONS: Diltiazem. PHYSICAL EXAM: During physical exam, patient in no distress, BP 152/96, HR 101, RR 16, height 5 foot 3 inches, weight 187.4 pounds, body mass index 33.1. Patient decreased her weight on 10 pounds comparing with the previous visit. Temperature 96.4, oxygen saturation at room air 96%. OROPHARYNX: Low position of soft palate. ABDOMEN: Obese. Neck Supple, no JVD. Thyroid is not palpable. LUNGS Clear to percussion and to auscultation. Good air exchange. No wheezing or rhonchi. HEART S1, S2 regular. No murmurs, gallops, or rubs. EXTREMITIES No clubbing or cyanosis. [employer] INSPECTOR Awake, alert, and oriented X3. Cranial nerves 2 to 7 intact. There is no fasciculation or atrophy. noted. No focal deficits observed. IMPRESSION: 1. Obstructive sleep apnea-hypopnea syndrome in severe range. Apnea-hypopnea index 31 on control with CPAP at the pressure of 7 cm of water, patient demonstrated 100% compliance with treatment, benefitting from treatment. 2. Obesity, patient decreased her weight 10 pounds since previous visit. 3. Hypertension. 4. Fibromyalgia. 5. Allergy. 6. Status post bilateral knee surgery. 7. History of diverticulitis. 8. Status post hysterectomy. 9. Status post cholecystectomy. PLAN: 1. I will maintain prescription for all necessary CPAP supplies including mask, tube, filters. 2. Patient will continue to use CPAP equipment every night for the whole night. 3. Losing weight. 4. Sleep hygiene with regular time bed for at least 8 hours. 5. No driving if feeling sleepiness. 6. Followup visit in 1 year or earlier if patient has any problems. Thank you very much for allowing me to participate in the management of patient. Sincerely, Drake Contreras MD, PhD, FAASM Diplomat of [employer] [employer] [facility] [place] MMMARK ANTHONY / BLANCA: [id number] /
== END ==
LOC: SLEEP 13:06
PROVIDERS: ATTEND Internal Medicine
DX: G47.33 Obstructive sleep apnea (adult) (pediatric) (principal); E66.9 Obesity, unspecified; I10 Essential (primary) hypertension; M79.7 Fibromyalgia; T78.40XA Allergy, unspecified, initial encounter; Z96.653 Presence of artificial knee joint, bilateral; K57.92 Diverticulitis of intestine, part unspecified, without perforation or abscess without bleeding; Z90.710 Acquired absence of both cervix and uterus; Z90.49 Acquired absence of other specified parts of digestive tract; Z99.89 Dependence on other enabling machines and devices; Z79.899 Other long term (current) drug therapy

== ENCOUNTER → 2018-12-25 | Outpatient (CLI) | payer MEDICARE ==
--- NOTE | 2018-12-25 17:16 | CT ---
EXAMINATION TYPE: CT abdomen pelvis w con DATE OF EXAM: 12/25/2018 COMPARISON: 04/29/2018 HISTORY: Pt has hx diverticulits. Pt is feeling symptoms again CT DLP: 1012.2 mGycm Automated exposure control for dose reduction was used. TECHNIQUE: Helical acquisition of images was performed from the lung bases through the pelvis. CONTRAST: Performed without Oral Contrast and with IV Contrast, patient injected with 100 mL of Isovue 300. FINDINGS: There is mild linear density at the lung bases. There is no pleural effusion. Heart is enlarged. Ther e is no pericardial effusion. There are clips from cholecystectomy. There is some scarring and atelectasis in the lingula left upper lobe. Liver shows no focal defect. Spleen appears normal. There is no pancreatic mass. Stomach appears norm al. Bile ducts are not dilated. There is no adrenal mass. Kidneys show satisfactory contrast opacification. There is no hydronephrosi s. There is no retroperitoneal adenopathy. There is no evidence of renal mass. Ureters are not dilate d. There are small renal parapelvic cysts. Bladder distends smoothly. There are numerous diverticula of the sigmoid colon. There is no mesenteri c edema. There is no free air. There is no ascites. Appendix is not seen. There is no sign of thicken ed appendix. There is a minimal degenerative first-degree L4-5 spondylolisthesis. There is no focal b one destruction. The bony pelvis is intact. IMPRESSION: THERE IS EXTENSIVE SIGMOID DIVERTICULOSIS WITHOUT SIGN OF DIVERTICULITIS. THERE IS CLEARING OF THE IN FLAMMATORY CHANGES AND DIVERTICULITIS COMPARED TO OLD EXAM. There is new atelectasis and scarring in the lingula left upper lobe compared to old exam.
== END | disposition home or self-care (01) ==
LOC: RADCTMAIN 15:09
PROVIDERS: ATTEND Nurse Practitioner Family
DX: K57.30 Diverticulosis of large intestine without perforation or abscess without bleeding (principal)
CPT/HCPCS: 82565; 84520; 74177; 36415; Q9967

== ENCOUNTER → 2020-07-07 | Outpatient (CLI) | payer MEDICARE ==
[2020-07-07 12:41] LABS: African American GFR (CKD) >90 (>60 ml/min/1.73 sqM); Blood Urea Nitrogen 17 mg/dL (7-17); Non-African American GFR(CKD) 82 (>60 ml/min/1.73 sqM)
--- NOTE | 2020-07-07 13:46 | CT ---
EXAMINATION TYPE: CT brain wo/w con DATE OF EXAM: 07/07/2020 COMPARISON: CT brain September 28, 2015 HISTORY: Acute sinusitis, Fall injury with headache. CT DLP: 2094.2 mGycm Automated exposure control for dose reduction was used. CONTRAST: CT scan of the head is performed without and with IV Contrast, patient injected with 100 ml mL of Iso sil 300. FINDINGS: Noncontrast images show no acute intracranial hemorrhage or midline shift. Diffuse ventricu lar and sulcal prominence. Some low attenuation in the deep and periventricular white matter. The ca lvarium is intact. Postcontrast images show no suspicious enhancing masses. The globes are intact and the visualized sinuses remain clear. The calvarium is intact. IMPRESSION: There is mild diffuse cerebral atrophy and chronic small vessel ischemic change redemonst rated. No suspicious enhancement. Paranasal sinuses remain clear.
== END | disposition home or self-care (01) ==
LOC: RADCTMAIN 11:54
PROVIDERS: ATTEND Pediatrics
DX: G31.9 Degenerative disease of nervous system, unspecified (principal); I67.82 Cerebral ischemia
CPT/HCPCS: 82565; 84520; 70470; 36415; Q9967

== ENCOUNTER → 2020-12-17 | Outpatient (CLI) | payer MEDICARE ==
[2020-12-17 14:33] LABS: HCT 47.8 % (34.0-46.0); HGB 16.4 gm/dL (11.4-16.0); MCHC 34.3 g/dL (31.0-37.0); MCV 93.3 fL (80.0-100.0); Mean Platelet Volume 8.4; Platelet Count 261 k/uL (150-450); RBC 5.13 m/uL (3.80-5.40); RDW 12.9 % (11.5-15.5); WBC 6.1 k/uL (3.8-10.6)
[2020-12-17 14:41] LABS: Albumin 4.3 g/dL (3.5-5.0); Calcium 9.7 mg/dL (8.4-10.2); Potassium 4.5 mmol/L (3.5-5.1); Total Bilirubin 0.2 mg/dL (0.2-1.3)
--- NOTE | 2020-12-18 06:45 | CT ---
EXAMINATION TYPE: CT abdomen pelvis w con DATE OF EXAM: 12/17/2020 HISTORY: Right lower quadrant abdominal pain, history of diverticulitis. CT DLP: 1168.5mGycm Automated Exposure Control for Dose Reduction was Utilized. CONTRAST: CT scan of the abdomen and pelvis is performed with oral and with IV Contrast, patient injected with 80ml mL of Isovue 300. COMPARISON: CT abdomen and pelvis December 25, 2018 FINDINGS: LUNG BASES: Mild cardiomegaly is redemonstrated. Mild scattered linear scarring and/or atelectasis in the bases. Stable focal chronic consolidation and/or atelectasis in the anterior left lung base. Pec tus deformity partially visualized. LIVER/GB: There is vague stable hypodense subcentimeter lesion right hepatic lobe posteriorly series 3 image 18 presumed benign. Gallbladder surgically absent. PANCREAS: No significant abnormality is seen. SPLEEN: No significant abnormality is seen. ADRENALS: Slight nodular thickening to right adrenal gland stable presumed benign series 3 image 18. KIDNEYS: Central tiny parapelvic cysts left kidney mid to lower pole level. No hydronephrosis seen bi laterally. BOWEL: Oral contrast reaches level of rectum. No suspicious small or large bowel dilatation. Some div erticula in the sigmoid colon. No CT evidence for acute diverticulitis. UTERUS/ADNEXA: Uterus surgically absent. Remnant ovaries near axial image 58 in the upper pelvis are not enlarged. LYMPH NODES: No greater than 1cm abdominal or pelvic lymph nodes are appreciated. OSSEOUS STRUCTURES: Vacuum disc phenomenon with mild disc space narrowing L4-L5 level. More moderate disc space narrowing and spurring in the thoracolumbar junction. Facet arthropathy lower lumbar spine . Moderate axial joint space loss and spurring in both hips. OTHER: Some narrowing of celiac artery at its origin sagittal images 67 and 68. Mild calcified plaque of the aorta extends into branch vessels. IMPRESSION: Sigmoid colonic diverticulosis without CT evidence for acute diverticulitis.
== END | disposition home or self-care (01) ==
LOC: RADCTMAIN 13:58
PROVIDERS: ATTEND Pediatrics
DX: K57.30 Diverticulosis of large intestine without perforation or abscess without bleeding (principal)
CPT/HCPCS: 80053; 85027; 74177; 36415; Q9967